=== PATIENT | male | born 1960 | race Caucasian/White ===

== ENCOUNTER 2019-07-15 23:36 | Inpatient (IN) | payer MEDICARE ==
[2019-07-16] MEDS ORDERED: Acetaminophen 325 MG TAB PO PRN (00:34)
[2019-07-16] MEDS ORDERED: Furosemide 40 MG/4 ML VIAL SLOW IVP SCH ×2 (00:45→09:00)
[2019-07-16] MEDS ORDERED: Potassium Chloride 20 MEQ TAB PO SCH ×2 (01:00→11:00)
[2019-07-16 01:15] LABS: Troponin I 0.025 ng/mL (< 0.028)
[2019-07-16 02:35] VITALS: BMI 32.5
[2019-07-16 05:14] LABS: Troponin I 0.034 ng/mL (< 0.028)
--- NOTE | 2019-07-16 05:24 | HP ---
CHIEF COMPLAINT: Shortness of breath and leg swelling. HISTORY OF PRESENT ILLNESS: Mr. Wheeler is a 59-year-old male with past medical history of cardiomyopathy, ischemic, with ejection fraction of 15%, AICD, coronary artery bypass graft surgery, presents to the emergency room with leg swelling from his waist down and worsening shortness of breath for the last week or so. The patient takes Lasix at home. On workup in the emergency room, the patient had elevated BNP more than 1000, hypokalemic with a potassium of 3.0, creatinine of 1.4. The patient is being admitted to the hospital for further management. Venous Doppler of lower extremities ordered by ED physician, results are pending at the time of this dictation. The patient denies fevers, chills, chest pain, nausea, vomiting, or diarrhea. PAST MEDICAL HISTORY: 1. Congestive heart failure, systolic. 2. Cardiomyopathy, ischemic. 3. Myocardial infarction. PAST SURGICAL HISTORY: 1. AICD. 2. Coronary artery bypass graft surgery x3. 3. Shoulder. SOCIAL HISTORY: Former smoker. Former alcohol drinker. FAMILY HISTORY: Reviewed and noncontributory. HOME MEDICATIONS: Please see home medication reconciliation form for updated medications. ALLERGIES: NO KNOWN ALLERGIES. REVIEW OF SYSTEMS: Review of 14 systems is negative except what is mentioned in history of present illness. PHYSICAL EXAMINATION: GENERAL: The patient is awake, alert, in [id number] respiratory distress. VITAL SIGNS: Blood pressure 129/90, respiratory rate is 22, pulse is 67, temperature 98, and pulse oximetry is 96%. HEAD AND NECK: Normocephalic and atraumatic. Neck is supple. CHEST: Few bibasilar crackles. HEART: S1 and S2. Regular. ABDOMEN: Soft. Bowel sounds present. NEUROLOGIC: Awake, alert, and oriented x3. PSYCH: Normal mood. EXTREMITIES: No cyanosis. 4+ pedal edema and scrotal edema. NEUROLOGIC: Awake, alert, and oriented x3. PSYCH: Normal mood. GENITOURINARY: No suprapubic tenderness. No flank tenderness. MUSCULOSKELETAL: No joint deformity or tenderness. LABORATORY DATA: As mentioned above in the history of present illness. Chest x-ray, no acute finding. ASSESSMENT: 1. Acute on chronic congestive heart failure, systolic. 2. Cardiomyopathy, ischemic with ejection fraction 15% to 20% as per the patient. 3. AICD. 4. History of coronary artery bypass graft surgery. 5. Acute hypokalemia. PLAN: 1. Admit. 2. Telemetry monitoring. 3. Replace potassium. 4. Continue with IV diuresis. 5. 2D echo. 6. Serial troponins. 7. Consult Cardiology in a.m. for evaluation and further recommendations. 8. DVT prophylaxis as appropriate. 9. Follow venous Doppler of lower extremities. 10. Reconcile home medications. 11. Expected length of stay at least 1 midnight if the patient is stable and the patient shows significant clinical improvement. Job ID: [id number]
[2019-07-16] MEDS: Furosemide 40 MG/4 ML VIAL SLOW IVP SCH ×2 (05:34→13:51)
[2019-07-16 07:20] LABS: Troponin I 0.028 ng/mL (< 0.028)
[2019-07-16] MEDS ORDERED: Heparin 5,000 UNITS/ML VIAL SC SCH (09:00)
--- NOTE | 2019-07-16 09:25 | ULT ---
EXAM: Bilateral lower extremity venous duplex: Deep veins evaluated with color Doppler, spectral analysis, and compression. INDICATIONS: Bilateral lower extremity pain and edema. FINDINGS: Deep veins interrogated include common femoral vein, femoral vein, popliteal vein, and post erior tibial vein. These veins show normal compression and blood flow. No evidence of DVT. Subcutaneous edema is noted bilaterally. IMPRESSION: Negative Bilateral venous duplex exam.
[2019-07-16] MEDS: Aspirin Chewable 81 MG TAB PO SCH (10:09)
[2019-07-16] MEDS ORDERED: Enoxaparin Sodium 100 MG/ML SYRINGE SC SCH (10:15)
[2019-07-16 10:17] LABS: Albumin 3.4 g/dL (3.5-5.0); Anion Gap 17 mmol/L (10-20); BUN (Urea Nitrogen) 26 mg/dL (8.4-25.7); Calc. Creatinine Clearance 81 mL/min (70-130); Calcium 8.8 mg/dL (7.8-10.44); Carbon Dioxide 22 mmol/L (22-29); Chloride 101 mmol/L (98-107); Estimated GFR-MDRD 55; Glucose 179 mg/dL (70-105); Magnesium 1.7 mg/dL (1.6-2.6); Phosphorus 3.5 mg/dL (2.3-4.7); Potassium 3.3 mmol/L (3.5-5.1); Sodium 137 mmol/L (136-145)
[2019-07-16] MEDS ORDERED: Magnesium Sulfate 3 GM in Sodium Chloride 0.9% 100 ML IVPB SCH (11:00)
[2019-07-16] MEDS ORDERED: Dextrose 50% Abboject 50 ML SYRINGE SLOW IVP PRN (16:59)
[2019-07-16] MEDS ORDERED: Dextrose 5% in Water 1,000 ML IV PRN (16:59)
[2019-07-16] MEDS: Carvedilol 6.25 MG TAB PO SCH (18:02)
[2019-07-16] MEDS: Potassium Chloride 20 MEQ TAB PO SCH (18:02)
[2019-07-16] MEDS: Lisinopril 5 MG TAB PO SCH (20:23)
[2019-07-16] MEDS: Enoxaparin Sodium 100 MG/ML SYRINGE SC SCH (20:24)
[2019-07-16] MEDS: Insulin Regular 300 UNITS/3 ML VIAL SC PRN (20:30)
--- NOTE | 2019-07-16 23:23 | CON ---
DATE OF CONSULTATION: 07/16/2019 INDICATION FOR CONSULTATION: For cardiomyopathy and increased shortness of breath and swelling with dyspnea on exertion. HISTORY OF PRESENT ILLNESS: Mr. Horan is a very pleasant 59-year-old gentleman with a long history of cardiomyopathy. He underwent bypass surgery after a myocardial infarction. He had bypass surgery about 5 years ago with three-vessel bypass. About two years later, he was then diagnosed with congestive heart failure. He also underwent AICD implant about 2 years ago. He has a history of diabetes, hypertension, and hypercholesterolemia. He smoked in the past, up to a pack a day for about 20 years. He no longer smokes. He usually lives in [place], but now he has been traveling around. He has a mobile home that he drives, a motor home and he has been living in [place] for the last year. He was seen once by [facility] to get renewals of his medications. He plans on moving onto [place] and then may be back to [place], but it is uncertain as exactly what his future is. He was seen in the emergency room. He had been taking his Lasix at home, but unfortunately it no longer was working. He was getting more short of breath and had noticed more edema all the way up to the groin and also in the scrotal area. He was seen in the emergency room and had a potassium of 3.0 with a BNP of greater than 1000. His creatinine was 1.4. He was admitted to the hospital for further evaluation and treatment. Echocardiogram shows indeed an ejection fraction of about 10% to 15%. He also has a thrombus in the left ventricular apex, which is non-mobile, but most likely it is a large hematoma, thrombus 2.75 x 1.5 cm. He also has evidence of an AICD, which was implanted previously. On the evaluation, the left ventricular size was severely increased. He has moderately enlarged right ventricle also. He had mild mitral valve regurgitation with severe tricuspid valve regurgitation and the ejection fraction was estimated at 10% to 15%. He denied any chest pain, but mainly the shortness of breath. PAST MEDICAL HISTORY: Significant for the diabetes and hypertension, which has been under good control, actually has been in the low side. He has history of cardiomyopathy. He has had myocardial infarction in the past. He has systolic congestive heart failure, severe. He has had an AICD implant. He had bypass surgery x3 five years ago. He has had left shoulder surgery. SOCIAL HISTORY: He smoked in the past about one pack a day for 20 years. He also drank in the past. He no longer drinks or smokes. FAMILY HISTORY: His father had a myocardial infarction at age 49 and at age 75. He has two children, ages 26 and 24, who have no heart disease. MEDICATIONS: His home medications include, 1. Lasix 40 mg twice a day. 2. Lisinopril 10 mg a day. ALLERGIES: NONE. REVIEW OF SYSTEMS: His 12-point review of systems is unremarkable except for the shortness of breath and the edema. Otherwise, he says he does quite well, has no significant abnormalities. PHYSICAL EXAMINATION: GENERAL: Reveals a middle-aged gentleman. VITAL SIGNS: Blood pressure 122/81, heart rates in the 60s and 70s, it shows a sinus rhythm, O2 saturation 94%, and respiratory rate is 26. HEENT: Shows the head to be normocephalic and atraumatic. Carotid pulses are present. There were no significant bruits noted. He does have JVD up to the angle of the jaw. CHEST: He has mild bibasilar rales. CARDIOVASCULAR: He has a regular rhythm. Heart sounds are somewhat distant. I did not hear any significant murmurs, heaves, thrills, bruits, or rubs. ABDOMEN: Shows obesity. Positive bowel sounds. I believe the liver is slightly enlarged. He does have some tenderness in the right upper quadrant area. He also has a systolic murmur at the lower sternal border. EXTREMITIES: Showed 2+ lower extremity edema. Pedal pulses were difficult to palpate. I could not palpate actually the pedal pulses, but popliteal pulses are present. NEUROLOGICAL: He appears to be intact. LABORATORY DATA: Shows a WBC of 5.4, hemoglobin 12.4, and platelet count 134,000. His potassium was 3.3, sodium was 137, BUN was 24 with a creatinine of 1.34. Blood sugar was 179. Troponin I's are indeterminate but anywhere between 0.02 and 0.03, will still be considered to be negative. His BNP was 2991. EKG shows a normal sinus rhythm with occasional PVCs and a left bundle branch block. IMPRESSION: 1. Elderly gentleman with severe ischemic cardiomyopathy, status post bypass surgery, status post myocardial infarction, now with ejection fraction of 10% to 15%. He is status post automatic implantable cardioverter-defibrillator implant. At this time, he has had decompensation of his congestive heart failure. I will add IV diuretics to see whether or not he will diurese. We will also discuss this with Dr. Joyner. He will do transplant for the severe heart failure and transplant evaluation. He may need to undergo a left ventricular assist device or a transplant. If we were not able to diurese the patient, he may need to be started on Milrinone and see whether or not he will diurese. Essentially, he has four-chamber dilatation with significant edema. He has had no significant urine output since he has been here. It has been about 500 mL according to the records since his admission here. Medication-cotton, he has been placed on Lovenox as well as furosemide 40 mg IV twice a day. He has also been placed on lisinopril as well as he has been on potassium replacement. Otherwise, he is on p.r.n. medications. 2. History of diabetes. This will be dealt with by the primary care service. 3. History of coronary artery disease. Hopefully, this is stable at this time. I do not know the last time he had a cardiac catheterization, he could not remember, but most likely he has not had a catheterization since his bypass surgery five years ago. This is always a possibility that he may have had progression of his coronary artery disease and may eventually need to undergo cardiac catheterization. He has been followed by a sterile processing tech in [place], and he says he wishes to continue his followup there once he returns back to [place]. He is not against having a transplant and if necessary, he would also have a transplant here but at this time, we will try to diurese the patient and see if we can get some symptomatic relief of his lower extremity edema and his shortness of breath. 4. Left ventricular thrombus. We will need to continue the heparin for this gentleman. This appears to be almost a laminar thrombus, it is nonmobile and could have been present for many years. Job ID: [id number]
[2019-07-17] MEDS ORDERED: Furosemide 100 MG/10 ML VIAL SLOW IVP PRN (01:00)
[2019-07-17 05:21] LABS: Albumin 3.2 g/dL (3.5-5.0); Anion Gap 12 mmol/L (10-20); BUN (Urea Nitrogen) 27 mg/dL (8.4-25.7); BUN/Creatinine Ratio 21.09; Calc. Creatinine Clearance 84 mL/min (70-130); Calcium 8.6 mg/dL (7.8-10.44); Carbon Dioxide 30 mmol/L (22-29); Chloride 100 mmol/L (98-107); Estimated GFR-MDRD 58; Glucose 97 mg/dL (70-105); Magnesium 1.9 mg/dL (1.6-2.6); Phosphorus 3.2 mg/dL (2.3-4.7); Potassium 3.7 mmol/L (3.5-5.1); Sodium 138 mmol/L (136-145)
[2019-07-17] MEDS: Furosemide 40 MG/4 ML VIAL SLOW IVP SCH ×2 (06:13→13:33)
[2019-07-17 06:23] LABS: Hemoglobin 12.7 g/dL (14.0-18.0); Platelet Count 114 thou/uL (130-400)
[2019-07-17] MEDS: Lisinopril 5 MG TAB PO SCH ×2 (09:16→20:45)
[2019-07-17] MEDS: Carvedilol 6.25 MG TAB PO SCH (09:16)
[2019-07-17] MEDS: Aspirin Chewable 81 MG TAB PO SCH (09:16)
[2019-07-17] MEDS: Potassium Chloride 20 MEQ TAB PO SCH ×2 (09:16→18:23)
[2019-07-17] MEDS: Enoxaparin Sodium 100 MG/ML SYRINGE SC SCH ×2 (09:17→20:46)
[2019-07-17] MEDS ORDERED: DEXTROSE 10% IVPB SCH (11:30)
[2019-07-17] MEDS ORDERED: WATER IVPB SCH (11:30)
[2019-07-17] MEDS ORDERED: DOBUTAMINE IVPB SCH (11:30)
--- NOTE | 2019-07-17 13:11 | PDOC.CPN ---
- Subjective Date: 07/17/19 Time: 13:18 Interval history: The pt seen and examined. No overnight events. No cardiac complaints. - Objective Allergies/Adverse Reactions: Allergies Allergy/AdvReac Type Severity Reaction Status Date / Time No Known Drug Allergies Allergy Verified 07/16/19 01:44 Visit Medications: Current Medications Acetaminophen (Tylenol) 650 mg PO Q4H PRN PRN Reason: Headache/Fever/Mild Pain (1-3) Albuterol/Ipratropium (Duoneb) 3 ml NEB Q6H PRN PRN Reason: SOB &/or Wheezing Aspirin (Aspirin Chewable) 81 mg PO DAILY [facility] Last Admin: 07/17/19 09:16 Dose: 81 mg [facility] ([facility]) [facility] Last Admin: 07/17/19 09:16 Dose: 6.25 mg Dextrose/Water (Dextrose 50%) 25 gm SLOW IVP PRN PRN PRN Reason: Hypoglycemia Enoxaparin Sodium (Lovenox) 90 mg SC BID [facility] Last Admin: 07/17/19 09:17 Dose: 90 mg Furosemide (Lasix) 40 mg SLOW IVP 0600,1400 [facility] Last Admin: 07/17/19 06:13 Dose: 40 mg Glucagon (Glucagon) 1 mg IM PRN PRN PRN Reason: Hypoglycemia Dextrose/Water (D5w) 1,000 mls @ 0 mls/hr IV .Q0M PRN PRN Reason: Hypoglycemia Dobutamine HCl 500 mg/ (Dextrose/Water) 125 mls @ 3.48 mls/hr IVPB INF AGUSTÍN; Protocol Insulin Human Regular (Humulin R) 0 units SC .MILD SLIDING SCALE PRN PRN Reason: Mild Correctional Scale Insulin Human Regular (Humulin R) 0 units SC .BEDTIME SLIDING SC PRN PRN Reason: Bedtime Correctional Scale Last Admin: 07/16/19 20:30 Dose: 2 unit Lisinopril (Zestril) 5 mg PO BID [facility] Last Admin: 07/17/19 09:16 Dose: 5 mg Potassium Chloride (K-Dur) 20 meq PO BID[facility] Last Admin: 07/17/19 09:16 Dose: 20 meq Sodium Chloride (Flush - Normal Saline) 10 ml IVF Q12HR [facility] Last Admin: 07/17/19 09:16 Dose: 10 ml Sodium Chloride (Flush - Normal Saline) 10 ml IVF PRN PRN PRN Reason: Saline Flush Last Admin: 07/16/19 11:42 Dose: 10 ml Vital Signs & Weight: Vital Signs Temp Pulse Pulse Pulse Resp BP BP 07/17/19 11:29 97.4 F L 64 18 07/17/19 10:51 62 61 110/76 122/81 07/17/19 09:16 62 07/17/19 07:48 97.6 F 62 24 H 07/17/19 03:43 97.7 F 54 L 19 07/17/19 01:59 57 L 18 BP Pulse Ox Pulse Ox Pulse Ox 07/17/19 11:29 113/80 95 07/17/19 10:51 96 93 L 07/17/19 09:16 07/17/19 07:48 124/80 95 07/17/19 03:43 107/59 L 98 07/17/19 01:59 98 Weight 204 lb 14.4 oz - Physical Exam General: alert & oriented x3 HEENT: mucus membranes moist Neck: supple neck Cardiac: regular rate and rhythm, S1/S2 Lungs: clear to auscultation, decreased breath sounds Neuro: cranial nerve 2-12 intact - Labs Result Diagrams: 07/17/19 04:27 07/17/19 04:27 Troponin/CKMB Troponin I 0.028 ng/mL (< 0.028) 07/16/19 06:40 - Telemetry Sinus rhythms and dysrhythmias: sinus rhythm - Assessment/Plan Assessment/Plan: 1. Acute on Chronic Systolic HF with EF 10-15% - On Diuretic and Lisinopril; Dobutamine drip was started from this AM; Will request Dr Joyner's consult; Holding Coreg due to Dobutamine drip 2. Lt Ventricular Thrombus - on Lovenox 3. Ischemic CMY with AICD placement in 2017 4. CAD with hx of CABG in 2014 - On Lisinopril and ASA; will check Lipid panel and will start statin depend on the result; the pt may need another LHC 5. HTN - stable 6. DM type 2 MAR reviewed * Echo on 07/16/2019 with EF 10-15%, non-mobile 2.75x1.5 cm thrombous in LV apex , "smoke" formation in LV, mod-severe LAE, mild MR and NJ, severe TR, and dilated IVC. Pt. seen and eval. by me. I agree with the A/P by the [employer]. he has not responded well to IV lasix. Starting dobutamine. If he does not respond to tis then woill need to consider LVAD and transplant. Chest: decreased BS bases. No wheeze . RRR. + JVD. Will ask Dr. Joyner to visit with the pt. juan pablo
[2019-07-17] MEDS: Insulin Regular 300 UNITS/3 ML VIAL SC PRN (18:23)
[2019-07-17 22:02] VITALS: BP 113/73
--- NOTE | 2019-07-17 22:27 | PRG ---
DATE OF SERVICE: 07/17/2019 SUBJECTIVE: 59-year-old white male with congestive heart failure, presented to the emergency room on July 16, 2019, with shortness of breath along with worsening bilateral lower extremity swelling. His workup was consistent with acute on chronic systolic heart failure exacerbation. The shortness of breath is almost the same. He continues to have significant lower extremity swelling. He gets short of breath on minimal exertion. REVIEW OF SYSTEMS: All other review of systems are reviewed and were found negative. PHYSICAL EXAMINATION: VITAL SIGNS: Temperature 98.2, pulse 64, respirations of 16, O2 saturation 98% on room air, blood pressure of 120/67. GENERAL: A 59-year-old male, in mild respiratory distress, able to complete short phrases. HEENT: Head, atraumatic and normocephalic. Sclerae anicteric. Moist mucous membranes. No oral lesion. NECK: Supple. JVD elevated. No carotid bruit. LUNGS: Showed rales at bilateral bases with scattered rhonchi. There was minimal accessory muscle use. No wheezing appreciated. HEART: S1, S2 present. Regular. No heaves or pulsation. There is 3/6 systolic murmur over the left lateral sternal border. ABDOMEN: Soft. Bowel sounds present. No rebound or guarding. No costovertebral angle tenderness. EXTREMITIES: 2+ edema. Telemetry monitoring by my review showed sinus rhythm. Echocardiogram showed ejection fraction of 10% to 15% with left ventricular apex thrombus with severe tricuspid regurgitation and dilatation of the inferior vena cava. Chest x-ray by my review showed pulmonary vascular congestion. Bilateral lower extremity Doppler was negative for DVT. IMPRESSION: 1. Acute on chronic systolic heart failure exacerbation refractory to diuretics. 2. Ischemic cardiomyopathy with ejection fraction 10% to 15% range. 3. History of AICD placement. 4. Coronary artery disease, status post coronary artery bypass grafting. 5. Obesity with a BMI of 32.1. 6. Hypokalemia. 7. Diabetes mellitus type 2. 8. Chronic kidney disease, stage 3. PLAN: We will continue IV diuretics. Dobutamine drip was started. We will continue low-dose carvedilol. Anticoagulation has been started for left ventricular thrombus. We will continue lisinopril. Replace potassium. Recheck electrolytes on a daily basis. We will consult Dr. Joyner. The patient understands the above plan of care. Job ID: [id number]
[2019-07-17 22:55] LABS: Anion Gap 12 mmol/L (10-20); BUN (Urea Nitrogen) 28 mg/dL (8.4-25.7); Calc. Creatinine Clearance 86 mL/min (70-130); Calcium 8.9 mg/dL (7.8-10.44); Carbon Dioxide 30 mmol/L (22-29); Chloride 98 mmol/L (98-107); Estimated GFR-MDRD 60; Glucose 79 mg/dL (70-105); Potassium 3.7 mmol/L (3.5-5.1); Sodium 136 mmol/L (136-145)
[2019-07-18] MEDS ORDERED: Furosemide 100 MG/10 ML VIAL SLOW IVP PRN (01:00)
[2019-07-18 04:18] LABS: Anion Gap 13 mmol/L (10-20); BUN (Urea Nitrogen) 29 mg/dL (8.4-25.7); Calc. Creatinine Clearance 89 mL/min (70-130); Calcium 8.5 mg/dL (7.8-10.44); Carbon Dioxide 26 mmol/L (22-29); Chloride 100 mmol/L (98-107); Cholesterol 135 mg/dl (< 200 Desired); Estimated GFR-MDRD 62; Glucose 199 mg/dL (70-105); HDL Cholesterol 27 mg/dL (>60 Neg Risk); LDL Cholesterol, Calculated 96 mg/dL; Magnesium 1.8 mg/dL (1.6-2.6); Sodium 135 mmol/L (136-145); Triglycerides 59 mg/dL (Less than 150)
[2019-07-18 04:34] LABS: #Basophils 0.1 thou/uL (0.0-0.2); #Eosinphils 0.1 thou/uL (0.0-0.7); #Lymphocytes 1.5 thou/uL (1.20-3.40); #Monocytes 0.4 thou/uL (0.11-0.59); #Neutrophils 3.2 thou/uL (1.40-6.50); %Basophils 1.5 % (0.0-1.0); %Eosinophils 2.6 % (0.0-10.0); %Lymphocytes 28.1 % (21.0-51.0); %Monocytes 8.3 % (0.0-10.0); %Neutrophils 59.5 % (42.0-75.0); Mean Corpuscular HGB CONC 31.3 g/dL (32.0-36.0); Mean Corpuscular Hemoglobin 30.1 pg (27.0-31.0); Mean Corpuscular Volume 96.3 fL (78.0-98.0); Mean Platelet Volume 9.6 fL (7.4-10.4); Platelet Count 125 thou/uL (130-400); RBC Distribution Width 16.9 % (11.5-14.5); Red Blood Cell (RBC) Count 3.97 mill/uL (4.70-6.10); White Blood Cell (WBC) Count 5.3 thou/uL (4.8-10.8)
[2019-07-18] MEDS: Insulin Regular 300 UNITS/3 ML VIAL SC PRN ×3 (06:19→22:18)
[2019-07-18] MEDS ORDERED: CCU Electrolyte Replacement 1 EACH FS SCH (06:33)
[2019-07-18] MEDS ORDERED: PHOS-NAK 1 PKT PACK PO PRN ×2 (06:39)
[2019-07-18] MEDS ORDERED: Potassium Phosphate 15 MMOL in Sodium Chloride 0.9% 250 ML 250 ML IV PRN (06:39)
[2019-07-18] MEDS ORDERED: Potassium Chloride 40 MEQ in Premix Bag 1 BAG IVPB PRN (06:39)
[2019-07-18] MEDS ORDERED: Potassium Chloride 40 MEQ in Sodium Chloride 0.9% 250 ML 250 ML IVPB PRN (06:39)
[2019-07-18] MEDS ORDERED: Magnesium Oxide 400 MG TAB PO PRN ×2 (06:39)
[2019-07-18] MEDS ORDERED: Potassium Phosphate 9 MMOL in Sodium Chloride 0.9% 100 ML IVPB PRN (06:39)
[2019-07-18] MEDS ORDERED: Potassium Phosphate 12 MMOL in Sodium Chloride 0.9% 250 ML 250 ML IV PRN (06:39)
[2019-07-18] MEDS ORDERED: Magnesium 2 GM/50 ML 2 GM in Premix Bag 1 BAG IVPB PRN (06:39)
[2019-07-18] MEDS ORDERED: CCU ELECTROLYTE REPLACEMENT PROTOCOL FS PRN (06:39)
[2019-07-18] MEDS ORDERED: Potassium Chloride 20 MEQ TAB PO PRN (06:39)
--- NOTE | 2019-07-18 08:01 | PRG ---
DATE OF SERVICE: 07/18/2019 SUBJECTIVE: Mr. Horan had a variable night. He was transferred from observation to CCU due to lack of bed at [facility]. His milrinone was started but then he had dips in the blood pressure down to about 90. Dobutamine had to be continued and the milrinone had to be slowly titrated. Eventually, he got Lasix 80 mg IV. He said that he feels better with two drips on board. He is less short of breath when he is moving and the chest less compressed. REVIEW OF SYSTEMS: GENERAL: There is no fever and chills. HEENT: There is no change in vision, hearing, or swallowing. PULMONARY: Less short of breath. CARDIOVASCULAR: There is no palpitations or syncope and less short of breath. GI: No new complaint. : He is able to urinate just fine. NEUROLOGIC: There are no new focal deficits. INTEGUMENT: There is no skin breakdown. CARDIAC MEDICATIONS: Currently include 1. Enoxaparin 90 mg subcu b.i.d. for LV thrombus. 2. Dobutamine at 2.5 mcg/kg/minute IV GTT. 3. Milrinone at 0.375 mcg/kg IV GTT,. 4. Lasix. He did receive 80 mg IV once. 5. Potassium chloride 20 mEq b.i.d. Telemetry was reviewed. He is remaining in sinus rhythm, but then he has occasional PVC. He has some strains of 3 PVCs. PHYSICAL EXAMINATION: CURRENT VITAL SIGNS: Heart rate 74, blood pressure 120/79. GENERAL: He is alert, conversational, reclining in comfort about 45 degrees. HEENT: EOMI. Oropharynx benign with moist mucosa. NECK: JVP is still at least 15 cm at the earlobe. PULMONARY: He has a cardiac wheeze diffuse and crackles at bilateral bases. HEART: Regular rate and rhythm with 3/6 holosystolic murmur at left upper sternal border. There is 2/6 holosystolic murmur at the apex with radiation to the left axilla. He has right ventricular heave. ABDOMEN: Soft, but distended. EXTREMITIES: Lower extremity exam still has 3+ pitting edema from feet to knee. LABORATORY DATA: From this morning is sodium 135, potassium 4.0, BUN 29, creatinine 1.2. His BNP is 2760. ASSESSMENT: 1. A 59-year-old gentleman, resides in likely [place] Heart Association stage D and [place] Heart Association class 3B heart failure with reduced ejection fraction due to ischemic cardiomyopathy. He remains volume overloaded. He is still decompensated. He is requiring combination dobutamine plus milrinone to augment the cardiac output. With JVP remained high and cardiac induced wheezing, we would need to be much more aggressive diuretics today. It is hoped now with augmented cardiac output that he will be able to sustain diuresis. In the meantime, we will work on transferring patient to a center that can perform an evaluation on an urgent basis for left ventricular assist device. The most likely choice at this point will be [facility] in [place], [place]. The patient did express that he wanted to go to [place]. RECOMMENDATIONS: Please see the following for recommendations: 1. Stop lisinopril. The patient had low blood pressure several times already. 2. Increase frequency of Lasix to 80 mg IV t.i.d. for today. 3. Please check BMP and magnesium at 6 p.m. today. 4. Start amiodarone 400 mg p.o. b.i.d. There is some ectopy on the telemetry. With the amount of inotrope on board and cessation of beta-marianna a day before, he will likely go into arrhythmia without any arrhythmic control. 5. Please aggressively supplement potassium and magnesium. Potassium should be above 4 and magnesium should be above 2 .. It has been a pleasure taking care of Mr. Vaughn Horan. If you any questions, please give me a call. Job ID: [id number]
--- NOTE | 2019-07-18 08:35 | CON ---
DATE OF CONSULTATION: 07/18/2019 CONSULTING PHYSICIAN: Delmis Pringle. REASON FOR CONSULTATION: ICU stay. HISTORY OF PRESENT ILLNESS: The patient is a 59-year-old male, who was first admitted to the hospital on 07/16/2019 by the hospitalist group with the chief complaint of shortness of breath and leg swelling. He has a known cardiomyopathy with EF of 10% to 15%. He was brought to the ICU yesterday for the purpose of initiating dobutamine and milrinone therapy for his chronic systolic heart failure. He says his breathing has improved and he started to diurese. PAST MEDICAL HISTORY: 1. Systolic heart failure. 2. Cardiomyopathy. 3. Diabetes mellitus. 4. Myocardial infarction. PAST SURGICAL HISTORY: 1. AICD placement. 2. Coronary artery bypass grafting surgery. 3. Shoulder surgery. SOCIAL HISTORY: Quit smoking some time ago. Does not drink alcohol. FAMILY MEDICAL HISTORY: Unremarkable. MEDICATIONS: Current inpatient medications: 1. DuoNeb. 2. Cordarone. 3. Aspirin. 4. Dobutamine. 5. Lovenox. 6. Furosemide. 7. Magnesium oxide. 8. Potassium chloride. Outpatient medications: 1. Prinivil. 2. Lasix. 3. Coreg. ALLERGIES: NONE. REVIEW OF SYSTEMS: Twelve-point review of systems is otherwise negative. PHYSICAL EXAMINATION: VITAL SIGNS: Temperature 98, pulse 61, blood pressure 121/65, and O2 saturation 98%. GENERAL: He is currently awake, alert, and in no distress. HEENT: Unremarkable. NECK: No adenopathy or JVD. CARDIAC: S1 and S2, currently regular with 2/6 systolic murmur. LUNGS: Inspiratory crackles at both bases. ABDOMEN: Soft and nontender. EXTREMITIES: No clubbing or cyanosis. Trace edema present. LABORATORY DATA: White blood cell count 5.3, hematocrit 38.2, and platelet count 125. Sodium 135, potassium 4, chloride 100, CO2 of 26, BUN 29, creatinine 1.2, and glucose 199. BNP 2760. IMAGING DATA: Chest x-ray from 07/15/2019 demonstrates cardiomegaly, AICD noted. No infiltrate. ASSESSMENT: 1. Chronic systolic heart failure with very poor ejection fraction. 2. Left ventricular thrombus. 3. Diabetes mellitus. PLAN: The patient is continuing therapeutic anticoagulation with enoxaparin. He is continuing dobutamine and milrinone for his systolic heart failure. He is being diuresed. Most of this management can be done by catering cook and Internal Medicine Team. Pulmonary/Critical Care will follow peripherally. Job ID: [id number]
--- NOTE | 2019-07-18 08:35 | CON ---
DATE OF CONSULTATION: 07/17/2019 REASON FOR CONSULT: Provide definitive treatment for acute on chronic heart failure. HISTORY OF PRESENT ILLNESS: Mr. Vaughn Horan, a 59-year-old gentleman with heart failure with reduced ejection fraction due ischemic cardiomyopathy, was admitted for acute on chronic heart failure. His heart problems started in 2012 when he suffered a myocardial infarction. He received coronary artery bypass x3. This was done in [place]. He said he would recover some and was able to go back to work. 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 He works for [employer]. His group developed brain vessel stents. He went into congestive heart failure in 2016. He said that his ejection fraction in 2016 was 15%. That qualified him for disability and Medicare. Consequently, with disability and Medicare, he decided not to work anymore. About a year ago, he could still walk 1 mile. In 2019, he decided to move from [place] down to [place], [place]. He bought a motor[place]ymante, feeling that he can live much cheaply on that because parking at [employer] costs only 10 dollars a night. It took him a while to repair and upgrade the motorhome. About six months ago, he developed abdominal bloating that persisted. His energy level and his exertional tolerance then become a more rapid decline. About 2 weeks ago, he was beginning to experience lower extremity edema. He said he never had lower extremity edema until then. He wanted to visit his friend in [facility], so he drove the motorhome from [place], [place] down to [facility]. He noticed that his lower extremity edema was becoming worse. He normally takes Lasix 20 mg twice a day. He increased it to 3 times a day. Even with the 3 times a day, his lower extremity edema worsened. He now finds that he can walk less than half a block. Although, he claims that he can lie flat. However, about 1 or 2 o'clock in the morning, he will wake up, feeling short of breath, needing to sit up. So, consequently, he had paroxysmal nocturnal dyspnea and this has been ongoing for at least a month. Finally, due to lower extremity edema, increasing shortness of breath and poor ability to sleep, it finally caused him to seek care at [facility]. Since hospitalization, he said that he is still short of breath. More importantly, he said he did not notice much decrease in his lower extremity edema or abdominal bloating. He said he is in discomfort still. Due to poor ability to diurese and known ejection fraction of 15% that is persistent, he was referred to Advanced Heart Failure consultation for definitive treatment. PAST MEDICAL HISTORY: 1. Coronary artery disease, status post coronary artery bypass in 2012, vessels unknown. 2. Hypertension. 3. Type 2 diabetes, but he could be insulin dependent now. SOCIAL HISTORY: 1. He smoked for 8 years, but stopped in . 2. He denies alcohol use. 3. He denies illicit drug use. 4. He was but in 2006. FAMILY HISTORY: His father had his first MA at age 49, but of second MA at age 75. His mother from pancreatic cancer at age 75. He also has two sisters who from cancer, one with breast cancer, the other one an unknown cancer. OUTPATIENT MEDICATIONS: He cannot recall exact doses. He believes his outpatient medications were: 1. Carvedilol, he said it was a maximum dose, then it is likely 25 mg b.i.d. 2. Lisinopril. 3. Lasix. He said it is at least 20 mg twice per day. REVIEW OF SYSTEMS: GENERAL: He is fatigued and he has noticed that he has decreased ability to concentrate and thinks he had difficulty to recall words and that has been ongoing for about a month. HEENT: There is no changing in vision, hearing, or swallowing. PULMONARY: Please see HPI. CARDIOVASCULAR: Please see HPI. GI: He can eat, but he has early satiety. : He said he is still able to urinate. MUSCULOSKELETAL: He does not complain of any joint pains, but he noticed that his knees are also swelling up. INTEGUMENT: There is no skin breakdown. NEUROLOGIC: He does not complain of neurologic deficits. There is no focal deficit or any weakness. PSYCHIATRIC: He is not depressed, but he is anxious of having something definitive done. MEDICATIONS: His inpatient medications include: 1. Lisinopril 5 mg b.i.d. 2. Dobutamine at 2.5 mcg/kg per minute. 3. Lasix at 40 mg IV b.i.d. 4. Aspirin 81 mg daily. 5. K-Dur at 20 mEq daily. PHYSICAL EXAMINATION: VITAL SIGNS: Heart rate 64, blood pressure 117/79. GENERAL: He is alert and conversational; however, he is short of breath with speaking. Exertion such as sitting up and moving his legs cause rapid breathing and very short of breath. HEENT: EOMI. Oropharynx benign. There is no erythema, no exudate. NECK: His JVP is elevated to the earlobe that is at least 15 cm. PULMONARY: He has bilateral crackles at lower one-third of the lungs. CARDIAC: Regular rate and rhythm. He has a 3/6 holosystolic murmur at the left upper sternal border. He also has a 2/6 systolic murmur at the apex with radiation to the left axilla. He also has a right ventricular heave. ABDOMEN: Distended, soft, but not tender. There are positive bowel sounds. EXTREMITIES: Lower extremities, he has 3+ pitting edema from his feet up to his knees. He said it is uncomfortable. LABORATORY DATA: Sodium 138, potassium 3.7, bicarb 30, BUN 27, creatinine 1.28. His measured BNP was 2991. ASSESSMENT: A 59-year-old male, likely to reside in [place] Heart Association stage D and also [place] Heart Association class 3B heart failure with reduced ejection fraction. This is due to ischemic cardiomyopathy. My review in office with an echocardiogram done on July 17, 2019, showed that the LVIDd of 7.3 cm, ejection fraction of 15%, there is a 15 x 16 mm thrombus at the apex, persistent mitral regurgitation, severely enlarged right ventricle, moderately depressed right ventricular function, severe tricuspid regurgitation, with tricuspid pressure gradient at 24.3, and very dilated inferior vena cava, and this would give an estimated PA pressure about 49 mmHg. This heart failure is a long progression from 2016. Consequently, recovery is not likely. He was under good medical management at the time of carvedilol, lisinopril. He does have Medicare parts A, B, and D. He also claims that he has good friends who will be able to stay with him post discharge for more than 30 days. He said he understands his heart is failing. He is actively seeking advanced heart failure treatment including heart transplant. He wants that to be done in [place] near his friend. On exam, he is still very volume overloaded. He also has shown very low cardiac output. Simple movements such as sitting up and also moving his legs will cause very short of breath. The immediate objective is to increase the cardiac output to provide more aggressive diuresis. In the meantime, we will work on a transfer to a center in [place] who can provide advanced heart failure care such as left ventricular assist device or heart transplant evaluation. The patient wants to go to [place]. Please see the following for recommendations: 1. Please transfer patient to IMCU or CCU where stronger inotropes can be started. 2. Please place a second PIV. 3. Please start Milrinone at 0.125 mcg/kg per minute, if systolic blood pressure remains above 95 after 1 hour, increase to 0.25 mcg/kg per minute, if systolic blood pressure still remains above 95 mmHg, then increase to 0.375 mcg/kg per minute. 4. Leave dobutamine running at 2.5 mcg/kg. In the near future, we can either titrate at all or increase it as needed. 5. After Milrinone running at 0.375 mcg/kg per minute for 3 hours, please give Lasix 80 mg IV one dose. This will be test dose and based on the output from that dose, we will calculate his diuretic needs for the next day. I suspect he will need at least 60 mg IV twice a day. If we were able to titrate off his dobutamine, then we can restart carvedilol in the future. 6. He has a [employer] device, I will ask someone to come by and interrogate his device. 7. In the meantime, I will contact either [facility] or [facility] for possible inpatient evaluation and transfer. Job ID: [id number]
[2019-07-18] MEDS ORDERED: Furosemide 100 MG/10 ML VIAL SLOW IVP SCH (09:00)
[2019-07-18] MEDS ORDERED: WATER IVPB SCH (09:45)
[2019-07-18] MEDS ORDERED: DOBUTAMINE IVPB SCH (09:45)
[2019-07-18] MEDS ORDERED: DEXTROSE 10% IVPB SCH (09:45)
[2019-07-18] MEDS: Potassium Chloride 20 MEQ TAB PO SCH ×2 (09:49→16:11)
[2019-07-18] MEDS: Amiodarone 200 MG TAB PO SCH ×2 (09:49→20:21)
[2019-07-18] MEDS: Aspirin Chewable 81 MG TAB PO SCH (09:49)
--- NOTE | 2019-07-18 13:33 | PDOC.PALCO ---
Palliative Care Consult - Consult Details Requesting Physician: Dr Ibarra Reason for Consult: goals of care, advance directives assistance Family Members Present: None, Patient friend Pedro - Pertinent HPI 59 year old male with IV Heart Failure. He is originally from [place] and was found to have cardiomyopathy lending to heart failure. Mr Wheeler continued to work until his ejection fraction was noted to be 15%, at which time he transitioned to disability and medicaid. He purchased a motor home and has recently transitioned to [employer]. He decided to come see his friend in the [place] area. The past several weeks he noted an increase in lower extremity edema and shortness of breath. He presented to the emergency room secondary to the edema and shortness of breath that had no relieving factors. Emergency room evaluation identified elevated BNP, altered metabolic panel including poor renal function. Admitted to CCU for medical management. Dr Joyner was consulted for heart failure. - Pertinent PMH CHF, Cardiomyopathy, CA, AICD placement, CAD - Social History Smoking Status: Former smoker Alcohol Use: none Drug Use History: none Living Situation: independent - Medications MAR Reviewed: Yes - Allergies Allergies/Adverse Reactions: Allergies Allergy/AdvReac Type Severity Reaction Status Date / Time No Known Drug Allergies Allergy Verified 07/16/19 01:44 - Subjective Awake, alert with friend Pedro at bedside. - ROS Constitutional: loss appetite, weakness Eyes: other (Denies visual changes or ocular complaints) ENT: other (Denies difficulity swallowing, congestion, ) Respiratory: shortness of breath, shortness of breath with extertion Cardiology: other (Denies chest pain or palpitations at time of assessment) Gastrointestinal: other (Denies nausea, vomiting, diarrhea) Genitourinary: other (Denies dysuria, frequency) Musculoskeletal: other (Denies change in mobility) Neurological: other (Denies change in coordination, tremor) Psychological: other (Denies anxiety, hallucinations, memory changes) - Objective Vital Signs: Vital Signs - Most Recent Temp Pulse Resp BP Pulse Ox 97.7 F 60 16 119/79 97 07/18/19 12:00 07/17/19 20:45 07/17/19 19:43 07/17/19 20:45 07/18/19 08:00 Palliative Performance Scale: 70 - Advance Directives Medical Power of Branch Credit Counselor: Friend ARTHUR Vasquez complete by A Daren - Physical Exam Constitutional: NAD HEENT: EOMI, PERRLA, sclera anicteric Respiratory: clear to auscultation bilateral, no wheezing Cardiovascular: RRR Gastrointestinal: continent, soft, non-tender Genitourinary: continent Musculoskeletal: edema present Neurology: moves all 4 limbs Skin: cap refill <2 seconds Psychiatric: A&O x 3 - Problem List (1) Palliative care by specialist Code(s): Z51.5 - ENCOUNTER FOR PALLIATIVE CARE Current Visit: Yes Status: Acute (2) Acute on chronic congestive heart failure Code(s): I50.9 - HEART FAILURE, UNSPECIFIED Current Visit: Yes Status: Acute (3) Cardiomyopathy Code(s): I42.9 - CARDIOMYOPATHY, UNSPECIFIED Current Visit: Yes Status: Acute (4) Dyspnea Code(s): R06.00 - DYSPNEA, UNSPECIFIED Current Visit: Yes Status: Acute - Plan/Recommendations Plan: Initial contact with patient introducing Palliative Care. Patient has been seen by Dr Joyner, heart failure. Patient desires aggressive measures to treat his heart failure. Plan Life vest Transfer to [facility] to be placed on the Heart Transplant List Friend Pedro to be MPOA. Encouraged them to discuss what Mr Wheeler would desire if he could not make a decision for himself. Encouraged regi discussion about specifics, including if Mr Wheeler ever required prolonged intubation, need for PEG/Trach, ect. Followed up after MPOA to assess if Mr Wheeler had any further questions. Palliative Care has completed MPOA and Goal of Care is aggressive measures with hope of heart transplant, awaiting transfer to [place]. PC Team will sign off for now, please let us know if we can assist in the future. [60] minutes spent on this encounter with >50% of the time in counseling and coordination of care. Thank you for this very appropriate consult.
[2019-07-18] MEDS: Enoxaparin Sodium 100 MG/ML SYRINGE SC SCH ×2 (14:49→20:22)
[2019-07-18] MEDS: Furosemide 100 MG/10 ML VIAL SLOW IVP SCH ×2 (14:50→22:16)
--- NOTE | 2019-07-18 15:39 | SPC ---
SPC CVP LINE PICC INITAL >5: 07/18/2019 3:36 PM INDICATION: Need for long-term IV access PROCEDURE: Peripherally placed 40 cm dual lumen PICC line performed at bedside utilizing ultrasound and a portable digital radiography. PICC Line Placement: The right arm was prepped and draped in sterile fashion. One percent lidocaine was used for local anesthetic. Under fluoroscopic and ultrasound guidance, the right basilic vein was patent and accessed with a aileen ropuncture needle. A guide wire was then advanced into the right basilic vein. A vascular sheath was then advanced over a guide wire, and a dual lumen PICC line was trimmed. The PICC line w as then advanced into the central venous system. A final placement film demonstrates the tip of the catheter terminated in the caval-atrial junction. After confirmation of the catheter position, the catheter was sutured in place at the skin entry site . There was no immediate complication. IMPRESSION: Peripheral placement of a dual lumen power PICC line into the right basilic vein using radiographic a nd ultrasound guidance.
[2019-07-18 18:33] LABS: Anion Gap 11 mmol/L (10-20); BUN (Urea Nitrogen) 24 mg/dL (8.4-25.7); Calc. Creatinine Clearance 83 mL/min (70-130); Calcium 8.7 mg/dL (7.8-10.44); Carbon Dioxide 31 mmol/L (22-29); Chloride 98 mmol/L (98-107); Estimated GFR-MDRD 59; Glucose 246 mg/dL (70-105); Potassium 3.9 mmol/L (3.5-5.1); Sodium 136 mmol/L (136-145)
[2019-07-18] MEDS ORDERED: Potassium Chloride 20 MEQ TAB PO SCH (19:45)
--- NOTE | 2019-07-18 21:30 | PDOC.HOSPP ---
- Subjective Encounter Date: 07/18/19 Encounter Time: 13:30 Subjective: Patient seen and examined for CHF exacerbation. SOB improving. No CP. No new complaints. No overnight events - Objective Vital Signs & Weight: Vital Signs (12 hours) Temp Pulse Ox 07/18/19 20:00 98.0 F 97 07/18/19 16:00 98.2 F 07/18/19 12:00 97.7 F Weight Weight 200 lb 9.93 oz Most Recent Monitor Data Heart Rate from ECG 66 NIBP 104/56 NIBP BP-Mean 72 Respiration from ECG 16 SpO2 97 I&O: 07/17/19 07/18/19 07/19/19 06:59 06:59 06:59 Intake Total 1444 1456.9 1489.7 Output Total 500 2875 4900 Balance 944 -1418.1 -3410.3 Result Diagrams: 07/18/19 03:38 07/18/19 18:01 Additional Labs: Accuchecks 07/18/19 07/18/19 07/18/19 16:10 11:42 06:22 POC Glucose 240 H 163 H 179 H EKG Reviewed by me: Yes (Tele SR) Hospitalist ROS - Review of Systems Respiratory: reports: SOB with excertion. denies: cough, dry, shortness of breath, hemoptysis, pleuritic pain, sputum, wheezing, other Cardiovascular: reports: edema. denies: chest pain, palpitations, orthopnea, paroxysmal noc. dyspnea, light headedness, other Gastrointestinal: denies: nausea, vomiting, abdominal pain, diarrhea, constipation, melena, hematochezia, other - Medication Medications: Active Medications Generic Name Dose Route Start Last Admin Trade Name Freq PRN Reason Stop Dose Admin Albuterol/Ipratropium 3 ml 07/17/19 01:16 07/17/19 19:43 Duoneb NEB 3 ml Q6H PRN Administration SOB &/or Wheezing Amiodarone HCl 400 mg 07/18/19 09:00 07/18/19 20:21 Cordarone PO 400 mg BID AGUSTÍN Administration Aspirin 81 mg 07/16/19 09:00 07/18/19 09:49 Aspirin Chewable PO 81 mg DAILY AGUSTÍN Administration Enoxaparin Sodium 90 mg 07/16/19 21:00 07/18/19 20:22 Lovenox SC 90 mg BID AGUSTÍN Administration Furosemide 80 mg 07/18/19 14:00 07/18/19 14:50 Lasix SLOW IVP 07/18/19 22:01 80 mg Q8HR AGUSTÍN Administration Milrinone Lactate 20 mg/ 100 mls @ 0 mls/hr 07/17/19 22:30 07/18/19 20:21 Sodium Chloride IVPB 100 mls INF AGUSTÍN Administration Protocol As Directed Magnesium Sulfate 1 gm/ Sodium 102 mls @ 102 mls/hr 07/18/19 06:39 07/18/19 09:52 Chloride IV 102 mls PRN PRN Administration MAG LEVEL 1.4 - 2.0 Dobutamine HCl 500 mg/ 125 mls @ 6.97 mls/hr 07/18/19 09:45 07/18/19 16:11 Dextrose/Water IVPB 125 mls INF AGUSTÍN Administration Protocol 5 MCG/KG/MIN Insulin Human Regular 0 units 07/16/19 16:59 07/18/19 16:12 Humulin R SC 3 unit .MILD SLIDING SCALE PRN Administration Mild Correctional Scale Insulin Human Regular 0 units 07/16/19 16:59 07/16/19 20:30 Humulin R SC 2 unit .BEDTIME SLIDING SC PRN Administration Bedtime Correctional Scale Potassium Chloride 20 meq 07/16/19 17:00 07/18/19 16:11 K-Dur PO 20 meq BID-WM AGUSTÍN Administration Potassium Chloride 40 meq 07/18/19 19:45 07/18/19 20:22 K-Dur PO 07/18/19 22:00 40 meq NOW AGUSTÍN Administration Sodium Chloride 10 ml 07/16/19 21:00 07/18/19 20:22 Flush - Normal Saline IVF 10 ml Q12HR AGUSTÍN Administration Sodium Chloride 10 ml 07/16/19 10:08 07/16/19 11:42 Flush - Normal Saline IVF 10 ml PRN PRN Administration Saline Flush - Exam General Appearance: NAD Heart: no gallops, no rubs Respiratory: no wheezes, rales, rhonchi Gastrointestinal: non-tender, non-distended, normal bowel sounds Extremities: no cyanosis Hosp A/P - Plan 1. Acute on chronic systolic heart failure exacerbation. 2. Ischemic cardiomyopathy with ejection fraction 10% to 15% range. s/p AICD 3. LV thrombus 4. Coronary artery disease, status post coronary artery bypass grafting. 5. Obesity with a BMI of 32.1. 6. Hypokalemia. 7. Diabetes mellitus type 2. 8. Chronic kidney disease, stage 3. PLAN: On IV Lasix with fluid rest On Dobutamine/Milrinone drip Coreg/Lisinopril dced due to relative hypotension On Amiodarone Cont Lovenox 1 mg/kg Monitor labs on daily basis Cont other meds AM labs
[2019-07-19 00:29] VITALS: TEMP 97.7
[2019-07-19] MEDS ORDERED: Furosemide 100 MG/10 ML VIAL SLOW IVP SCH (06:00)
--- NOTE | 2019-07-19 10:02 | DIS ---
DATE OF ADMISSION: 07/16/2019 DATE OF DISCHARGE: 07/19/2019 DISCHARGE DISPOSITION: [facility]. BRIEF HOSPITAL COURSE: The patient is a 59-year-old male, who presented to the emergency room on July 16, 2019, with shortness of breath along with leg swelling. He has history of ischemic cardiomyopathy with ejection fraction of 15%, status post AICD. He was monitored on the telemetry unit. He was started on diuretics with minimal response. Later on, he was started on dobutamine and milrinone drip with good improvement in his symptoms. He lost around 7 pounds over the past 48 hours. He was transferred to [facility] for higher level of care. The patient was also found to have LV thrombus. For this reason, he was started on Lovenox 1 mg/kg. FINAL DIAGNOSES: 1. [id number] systolic heart failure exacerbation. 2. Ischemic cardiomyopathy with ejection fraction 10% to 15% range, status post automatic implantable cardioverter-defibrillator. 3. Left ventricular thrombus. 4. Coronary artery disease, status post coronary artery bypass grafting. 5. Obesity with a BMI 32. 6. Hypokalemia. 7. Diabetes mellitus, type 2. 8. Chronic kidney disease, stage 3. DISCHARGE MEDICATIONS: The patient will go on current medications that include: 1. Dobutamine drip. 2. IV Lasix. 3. Amiodarone. 4. Milrinone drip along with 1 mg/kg of Lovenox. Job ID: [id number]
== END 2019-07-19 01:19 | disposition short-term general hospital (02) | DRG 292 ==
LOC: ERS 23:36 → 2SW 07-16 00:40 → OBSVTOIN 07-16 10:47 → CCU 07-17 22:53
PROVIDERS: ADMIT Internal Medicine; ATTEND Internal Medicine
PROC: 02HV33Z Insertion of Infusion Device into Superior Vena Cava, Percutaneous Approach (ICD-10-PCS; principal; 2019-07-18)
PROC: B548ZZA Ultrasonography of Superior Vena Cava, Guidance (ICD-10-PCS; 2019-07-18)
PROC: B5181ZA Fluoroscopy of Superior Vena Cava using Low Osmolar Contrast, Guidance (ICD-10-PCS; 2019-07-18)
DX: I50.23 Acute on chronic systolic (congestive) heart failure (principal); I24.0 Acute coronary thrombosis not resulting in myocardial infarction; I12.9 Hypertensive chronic kidney disease with stage 1 through stage 4 chronic kidney disease, or unspecified chronic kidney disease; I25.5 Ischemic cardiomyopathy; E11.22 Type 2 diabetes mellitus with diabetic chronic kidney disease; E66.9 Obesity, unspecified; N18.3 Chronic kidney disease, stage 3 (moderate); E78.00 Pure hypercholesterolemia, unspecified; E87.5 Hyperkalemia; Z95.1 Presence of aortocoronary bypass graft; Z79.4 Long term (current) use of insulin; Z95.810 Presence of automatic (implantable) cardiac defibrillator; I25.2 Old myocardial infarction; Z87.891 Personal history of nicotine dependence; Z68.32 Body mass index [BMI] 32.0-32.9, adult
CPT/HCPCS: 36415; 36416; 36569; 80048; 80061; 80069; 83735; 83880; 84443; 84484; 85014; 85018; 85025; 85049; 93306; 93798; 93970; 94640; C1751; J1250; J1650; J1815; J1940; J2260; J3475; J3490; J7620